=== PATIENT | male | born 1995 ===

== ENCOUNTER 2024-02-19 16:28 | Emergency (ER) | payer OTHER ==
[~2024-02-19] VITALS: Ht 180.3 cm; Wt 79.0 kg
[2024-02-19 16:55] VITALS: BP 129/77; PULSE 60; RESP 18; TEMP 97.8; O2SAT 98
== END 2024-02-19 20:18 | disposition left against medical advice (07) ==
LOC: ER 16:28
DX: H92.02 Otalgia, left ear (principal); Z53.21 Procedure and treatment not carried out due to patient leaving prior to being seen by health care provider
CPT/HCPCS: 99285